=== PATIENT | male | born 1990 | race Hispanic/Latino ===

== ENCOUNTER 2019-06-02 20:32 | Emergency (ER) | payer SELFPAY ==
[~2019-06-02] VITALS: Ht 160 cm; Wt 67.7 kg
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
[2019-06-02 22:15] LABS: BASO % 0.1 % (0.0-1.0); EOS % 0.4 % (0.0-3.0); HEMATOCRIT 43.5 % (42.0-52.0); HEMOGLOBIN 14.5 g/dl (13.5-17.5); LYMPH # 1.7 10^3/uL (1.5-5.0); LYMPH % 20.6 % (24.0-44.0); MEAN CORPUSCULAR HEMOGLOBIN 29.6 pg (27.0-33.0); MEAN CORPUSCULAR HGB CONC 33.3 g/dl (32.0-36.5); MEAN CORPUSCULAR VOLUME 88.8 fl (80.0-96.0); MONO # 0.6 10^3/uL (0.0-0.8); MONO % 7.5 % (0.0-5.0); PLATELET COUNT, AUTOMATED 208 10^3/uL (150-450); WHITE BLOOD COUNT 8.5 10^3/uL (4.0-10.0)
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
[2019-06-02] MEDS ORDERED: ONDANSETRON 4MG/2ML VIAL (J2405) IV ONE (22:30)
[2019-06-02] MEDS: MORPHINE 4 MG/ML 1ML VIAL/SYRINGE (J2270) IV PRN ×2 (22:55→22:56)
[2019-06-02] MEDS ORDERED: NS 1,000 ML IV SCH (23:30)
[2019-06-03 00:30] VITALS: BP 137/78
--- NOTE | 2019-06-03 05:58 | ECGEPIP ---
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
--- NOTE | 2019-06-03 06:11 | REP ---
Clinical: Trauma. Technique: Frontal view of the chest with multiple views of the right and left hemithorax. Findings: Frontal view of the chest demonstrates no acute cardiopulmonary process. Multiple views of the bilateral hemithoraces demonstrates no obvious acute rib fracture or pathology. Impression: Normal bilateral rib series Electronically Signed by Sal Lubin MD 06/03/2019 06:02 A
== END 2019-06-03 00:33 | disposition short-term general hospital (02) ==
LOC: M ED 20:32
DX: S02.31XA Fracture of orbital floor, right side, initial encounter for closed fracture (principal); S02.401A Maxillary fracture, unspecified side, initial encounter for closed fracture; S02.2XXA Fracture of nasal bones, initial encounter for closed fracture; S02.609A Fracture of mandible, unspecified, initial encounter for closed fracture; S02.402A Zygomatic fracture, unspecified side, initial encounter for closed fracture; Y04.8XXA Assault by other bodily force, initial encounter; Y92.099 Unspecified place in other non-institutional residence as the place of occurrence of the external cause; Y93.89 Activity, other specified; Y99.9 Unspecified external cause status
CPT/HCPCS: 70450; 70486; 71111; 71250; 72125; 80047; 85025; 93005; 96374; 96375; 99284; J2270; J2405